=== PATIENT | female | born 1965 | race Caucasian/White ===

== ENCOUNTER 2023-01-30 13:10 | Emergency (ER) | payer SELFPAY ==
[2023-01-30 13:12] VITALS: BP 139/80; PULSE 94; RESP 18; TEMP 37.3; O2SAT 99
--- NOTE | 2023-01-30 13:46 | W.ED.GENAD ---
Discharge Plan Disposition Patient Disposition: Home Discharge Details Clinical Impression: Pain, dental, Neck arthralgia ED Provider: Kike Cooper Home Meds and New Rx's Prescriptions: New amoxicillin-pot clavulanate 875-125 mg tablet 1 tab PO Q12H 7 Days Qty: 14 0RF diclofenac potassium 50 mg tablet 50 mg PO TID PRN (Reason: pain) Qty: 15 0RF Continued citalopram 10 mg Tablet 10 mg PO DAILY enalapril maleate 2.5 mg Tablet 2.5 mg PO DAILY Discharge Instructions Instructions: Dental Abscess (ED), Neck Pain (ED) Additional Instructions: As discussed if you develop any new or significant worsening of symptoms please return to the emergency department for reassessment. This is especially given that we did not perform any imaging for your neck pain. Your description of symptoms is consistent with potential dental infection but no obvious dental abscess was noted on today's exam. We have decided to place you on antibiotics to cover for any potential early infection but it is very important that you follow-up with a dental provider for definitive care of your tooth decay and fractured teeth. We have placed you on a list for establishment of a primary care provider so care management should be reaching out to you to assist with this. Referrals: Primary Care Provider [Outside] Medical Decision Making Patient presenting to the emergency department for chief complaint of dental pain and neck pain. Patient states that she has been having neck pain for a while with no injury or trauma. She states her main reason for coming in though was her dental pain. She states this is worsened over the past week and she has noted some right-sided facial swelling. 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 Patient denies any fever chills, difficulty swallowing or breathing, any systemic symptoms. Physical exam shows very poor dental condition with multiple caries and dental decay with fractured teeth secondary to decay. Area of patient's concern is tooth #3 that has tooth loss down to gumline. There is slight erythema surrounding this area but no obvious swelling or abscess. no signs of deep neck space infection ( Retropharyngeal abscess, Mynor's angina, Parapharyngeal space infection, Peritonsillar Abscess ([employer]OL[employer])) or Epiglottitis. Pt non toxic and stable with normal vital signs. Patient did have full range of motion of neck, slight tenderness to palpation of the lower cervical spine but no radiculopathy noted with range of motion no tenderness of soft tissue or carotids. Did offer to image patient's neck which she refuses any imaging at this time but I am not concerned for any emergent findings given that symptoms have been going on for a while per patient report and no radiculopathy directly noted with range of motion. Patient also denies any injury or trauma. I suspect arthritic source of neck pain. Of note patient Report given to us by EMS was that patient was coming in for depression and detox. Patient denies this and states that she has only been drinking over the last week to deal with her dental pain. She has history of COPD and hypertension but denies all other past medical history. Patient denies suicidal or homicidal ideations and states again that she is only here for discomfort and that is the only reason she has been drinking recently. Patient states that she does not have a primary care provider currently so patient placed on care management list for establishment of primary care provider along with a referral to dentist for definitive care of her dental complaint. Given that we did not perform any imaging patient was encouraged to return for any new or worsening symptoms or further concerns. After discussion of diagnosis and plan of care patient has no further needs, questions, or concerns and states clear understanding to return to the emergency department for any worsening symptoms. This documentation was generated using [employer] dictation system, please disregard any oddities of phrase or misspellings. HPI General Mode of arrival: EMS. Date/Time Provider Initiated Documentation: 01/30/23 13:16. Limitations to Documentation: no limitations. Information obtained by: patient, EMS and RN notes reviewed. History of Present Illness 57 year old F presents to the emergency department with the chief complaint of Dental pain, neck pain, described as mild, with intensity rated at 5. Quality is described as aching, and is localized to the mouth. Patient reports no radiation. Patient started experiencing this week(s) (1) and it has been constant. No relieving factors improve symptom(s), No exacerbating factors reported . Patient notes other (None associated neck pain). Patient did receive the following treatments prior to arrival, none Related Data Home Medications Medication Instructions Recorded Confirmed amoxicillin 875 mg-potassium 1 tab PO Q12H 7 days #14 tabs 01/30/23 clavulanate 125 mg tablet citalopram 10 mg tablet 10 mg PO DAILY 01/30/23 01/30/23 diclofenac potassium 50 mg tablet 50 mg PO TID PRN pain #15 tabs 01/30/23 enalapril maleate 2.5 mg tablet 2.5 mg PO DAILY 01/30/23 01/30/23 Previous Rx's Medication Instructions Recorded amoxicillin 875 mg-potassium 1 tab PO Q12H 7 days #14 tabs 01/30/23 clavulanate 125 mg tablet diclofenac potassium 50 mg tablet 50 mg PO TID PRN pain #15 tabs 01/30/23 Allergies Allergy/AdvReac Type Severity Reaction Status Date / Time metoprolol AdvReac Wheezing Unverified 01/30/23 13:35 General Stated Complaint: DentalOral [place]: 3 Review of Systems Constitutional Constitutional: Denies chills, Denies fever(s) and Denies headache(s) ENT Ears, Nose, Mouth, and Throat: Reports as per HPI, Denies change in voice, Reports dental pain, Denies headache(s), Denies epistaxis, Denies mouth lesions, Denies mouth pain, Reports neck pain, Denies nose pain and Denies odynophagia Cardiovascular Cardiovascular: Denies chest pain and Denies dyspnea Respiratory Respiratory: Denies dyspnea Gastrointestinal Gastrointestinal: Denies abdominal pain and Denies odynophagia Musculoskeletal Musculoskeletal: Denies muscle weakness, Reports neck pain, Denies numbness and Denies radiating pain into limb Neurologic Neurologic: Denies headache(s) and Denies numbness PFSH All Active Problems Hypertension (Chronic) Pain, dental (Acute) Neck arthralgia (Acute) Medical History COPD (chronic obstructive pulmonary disease) Social History Smoking/Tobacco Use Status: Current every day Smoking risk assessment performed?: Yes Alcohol Intake: current Alcohol Intake frequency: 3 or more drinks per day Drug use: Never Substance use type: does not use Housing: house Do you feel safe at home: Yes Do you feel safe in your relationship?: Yes Exam Const General: cooperative Orientation: alert, awake and oriented x3 HENMT Head: normal to inspection, normocephalic and atraumatic Ears: hearing grossly normal bilaterally, normal mastoids bilaterally and no periauricular adenopathy General nose exam: external nose normal Mouth: oropharynx normal, no drooling, no muffled voice, normal tongue and no trismus Teeth and gingiva: caries, poor dentition and other (Partially fractured tooth3 with erythema surrounding the base of the tooth) Throat: posterior oropharynx normal, tonsils normal and uvula midline Eyes General: appearance normal, both eyes and all related structures Pupils: PERRL Neck Neck: normal visual inspection, full ROM, no lymphadenopathy, no meningeal signs, trachea midline, supple, no anterior neck swelling and no midline deformity Resp Effort & Inspection: normal respiratory effort and able to speak in complete sentences Back/Spine/Pelvis Cervical Spine: normal cervical lordosis, cervical ROM normal, No cervical muscular tenderness, pain with cervical ROM, No cervical spasm and cervical spinal tenderness Psych Appearance: disheveled Speech and Movement: speech and movement normal Mood: anxious mood Affect: blunted Attitude: cooperative Thought Process: normal Thought Content: normal, no homicidality and suicidality Course Vital Signs Vital signs: Vital Signs Temperature 37.3 C 01/30/23 13:12 Pulse 94 H 01/30/23 13:12 Respiratory Rate 18 01/30/23 13:12 Blood Pressure 139/80 01/30/23 13:12 Pulse Oximetry 99 01/30/23 13:12 Temperature 37.3 C 01/30/23 13:12 Pulse 94 H 01/30/23 13:12 Respiratory Rate 18 01/30/23 13:12 Respiratory Effort Normal, Non-Labored 01/30/23 13:17 Blood Pressure 139/80 01/30/23 13:12 Blood Pressure Position Sitting 01/30/23 13:12 Pulse Oximetry 99 01/30/23 13:12 Oxygen Delivery Method Room Air 01/30/23 13:12 Oxygen Flow Rate 0 01/30/23 13:12 Pain Level 7 01/30/23 13:12
--- NOTE | 2023-01-30 13:48 | NUR.NOTE ---
Nursing Note: PT needs follow up in 1-2 weeks to establish care, evaluate chronic neck pain & dental referral. Sydni, ED
== END 2023-01-30 14:05 | disposition home or self-care (01) ==
PROVIDERS: Emergency Provider Nurse Practitioner Family
DX: K08.89 Other specified disorders of teeth and supporting structures (principal); M54.2 Cervicalgia
CPT/HCPCS: 99283; 99284